=== PATIENT | male | born 1980 | race Caucasian/White ===

== ENCOUNTER 2021-08-18 07:26 | Outpatient (CLI) | payer OTHER ==
[2021-08-18] MEDS ORDERED: Magnevist 469MG/ML 20 ML VIAL ONE (10:53)
== END 2021-08-18 07:27 | disposition home or self-care (01) ==
LOC: BICMRI 07:26
PROVIDERS: ATTEND Neurological Surgery
DX: M51.16 Intervertebral disc disorders with radiculopathy, lumbar region (principal); M48.061 Spinal stenosis, lumbar region without neurogenic claudication; M48.07 Spinal stenosis, lumbosacral region
CPT/HCPCS: 72158; 82565; A9579

== ENCOUNTER 2021-10-10 10:18 | Outpatient (CLI) | payer OTHER ==
[2021-10-10 16:46] LABS: SARS-CoV-2 PCR by NAA Not Detected (NotDetected)
== END 2021-10-10 10:19 | disposition home or self-care (01) ==
LOC: LABBT 10:18
PROVIDERS: ATTEND Neurological Surgery
DX: Z01.812 Encounter for preprocedural laboratory examination (principal); Z20.822 Contact with and (suspected) exposure to COVID-19
CPT/HCPCS: U0003; U0005

== ENCOUNTER 2021-10-13 05:54 | Day surgery (SDC) | payer OTHER ==
[2021-10-12 11:01] VITALS: BMI 36.3
[2021-10-13] MEDS ORDERED: ceFAZolin 2 GM/DEX 5% 100 ML BAG ONE ×2 (06:32→14:18)
[2021-10-13] MEDS ORDERED: HYDROmorphone 0.5 MG/0.5 ML SYRINGE ONE (08:47)
[2021-10-13] MEDS ORDERED: Fentanyl 100 MCG/2 ML VIAL ONE ×2 (08:47→12:19)
[2021-10-13] MEDS ORDERED: EPINEPHrine 1 MG/ML AMP ONE (08:55)
[2021-10-13] MEDS ORDERED: Thrombin 5000 UNITS/5 ML VIAL ONE (08:55)
[2021-10-13] MEDS ORDERED: Bupivacaine PF 0.5% 30 ML VIAL ONE (08:55)
[2021-10-13] MEDS ORDERED: Midazolam HCl 2 mg/2 ml Vial ONE (08:58)
[2021-10-13] MEDS ORDERED: Glycopyrrolate 0.2 MG/ML 5 ML SYRINGE ONE (09:12)
[2021-10-13] MEDS ORDERED: Phenylephrine 10 MG/ML VIAL ONE (09:12)
[2021-10-13] MEDS ORDERED: PROPOFOL 200 MG/20 ML VIAL ONE (09:12)
[2021-10-13] MEDS ORDERED: Lidocaine 1% PF 5 ML VIAL ONE (09:12)
[2021-10-13] MEDS ORDERED: Ondansetron PF 4 MG/2 ML Vial ONE (09:12)
[2021-10-13] MEDS ORDERED: ePHEDrine 50 MG/ML VIAL ONE (09:12)
[2021-10-13] MEDS ORDERED: Ketorolac Tromethamine 30 MG/ML VIAL ONE (09:12)
[2021-10-13] MEDS ORDERED: Rocuronium Bromide 10 MG/ML (10ML VIAL) ONE (09:12)
[2021-10-13] MEDS ORDERED: Dexamethasone 20 MG/5 ML VIAL ONE (09:12)
[2021-10-13] MEDS ORDERED: Tamsulosin HCl 0.4 MG CAP ONE (12:51)
== END 2021-10-13 15:15 | disposition home or self-care (01) ==
LOC: SDC 05:54
PROVIDERS: ATTEND Neurological Surgery
PROC: 01NB0ZZ Release Lumbar Nerve, Open Approach (ICD-10-PCS; principal; 2021-10-13)
DX: M48.062 Spinal stenosis, lumbar region with neurogenic claudication (principal); M21.379 Foot drop, unspecified foot; M47.26 Other spondylosis with radiculopathy, lumbar region; I10 Essential (primary) hypertension; Z79.899 Other long term (current) drug therapy; Z98.890 Other specified postprocedural states
CPT/HCPCS: 76000; J0171; J1100; J1170; J1885; J2250; J2370; J2405; J2704; J3010; J3490; S0020